=== PATIENT | female | born 1970 | race African-American/Black ===

== ENCOUNTER 2020-05-20 11:30 | Emergency (ER) | payer SELFPAY ==
[~2020-05-20] VITALS: Ht 167.6 cm; Wt 74.1 kg
[2020-05-20 11:30] VITALS: BP 148/101
[2020-05-20] MEDS ORDERED: SUCRALFATE 1 GM TABLET. PO ONE ×2 (11:44→12:00)
[2020-05-20] MEDS ORDERED: LIDO:MAALOX 1:1 20 ML SINGLE DOSE. ONE (11:44)
[2020-05-20] MEDS ORDERED: LIDO:MAALOX 1:1 20 ML SINGLE DOSE. PO ONE (11:45)
--- NOTE | 2020-05-20 11:45 | PHYS DOC ---
Past History Past Surgical History: Gastric Bypass Adult General Chief Complaint Chief Complaint: ABDOMINAL PAIN HPI HPI Patient is a 49-year-old female who presents via POV for abdominal pain. This is an acute on chronic process. She has history of numerous abdominal surgeries such as gastric bypass and has known ulcers. She used to abuse NSAIDs and subsequently was treated in outpatient setting for ulcers. Reports she has not had any NSAIDs but does admit that she used to drink a lot and recently had "a beer to" several days ago. She reports having epigastric pain that is gnawing in nature and worsening since having beer. She attempted to go to work today but abdominal pain was unrelenting prompting her to come to our ER for evaluation Review of Systems Review of Systems Fourteen body systems of review of systems have been reviewed. See HPI for pertinent positives and negative responses, other vázquez all other systems are negative, non-pertinent or non-contributory Allergies Allergies Allergies Coded Allergies Type Severity Reaction Last Updated Verified latex Allergy Unknown 05/20/20 Yes prochlorperazine Allergy Unknown 05/20/20 Yes Physical Exam Physical Exam Constitutional: Well developed, well nourished, no acute distress, non-toxic appearance. HENT: Normocephalic, atraumatic, bilateral external ears normal, oropharynx moist, no oral exudates, nose normal. Eyes: PERRLA, EOMI, conjunctiva normal, no discharge. Neck: Normal range of motion, no tenderness, supple, no stridor. Cardiovascular: Heart rate regular, sinus rhythm, no murmurs rubs or gallops Lungs & Thorax: Bilateral breath sounds clear to auscultation Abdomen: Bowel sounds normal, soft, epigastric tenderness to palpation without guarding or rebound, no masses, no pulsatile masses. Nonsurgical abdomen, no peritoneal signs Skin: Warm, dry, no erythema, no rash. Back: No tenderness, no CVA tenderness. Extremities: No tenderness, no cyanosis, no clubbing, ROM intact, no edema. Neurologic: Alert and oriented X 3, grossly normal motor & sensory function, no focal deficits noted. Psychologic: Tearful affect, judgement normal, mood normal. Current Patient Data Vital Signs Vital Signs Date Time Temp Pulse Resp B/P (MAP) Pulse Ox O2 Delivery O2 Flow Rate FiO2 05/20/20 13:04 16 98 05/20/20 11:30 98.9 76 20 148/101 (117) 97 Room Air Lab Results Laboratory Tests Test 05/20/20 12:20 White Blood Count 4.9 x10^3/uL Red Blood Count 4.65 x10^6/uL Hemoglobin 12.5 g/dL Hematocrit 38.9 % Mean Corpuscular Volume 84 fL Mean Corpuscular Hemoglobin 27 pg Mean Corpuscular Hemoglobin Concent 32 g/dL Red Cell Distribution Width 14.2 % Platelet Count 265 x10^3/uL Neutrophils (%) (Auto) 38 % Lymphocytes (%) (Auto) 48 % Monocytes (%) (Auto) 7 % Eosinophils (%) (Auto) 6 % Basophils (%) (Auto) 1 % Neutrophils # (Auto) 1.9 x10^3uL Lymphocytes # (Auto) 2.3 x10^3/uL Monocytes # (Auto) 0.3 x10^3/uL Eosinophils # (Auto) 0.3 x10^3/uL Basophils # (Auto) 0.1 x10^3/uL Sodium Level 146 mmol/L Potassium Level 3.6 mmol/L Chloride Level 108 mmol/L Carbon Dioxide Level 33 mmol/L Anion Gap 5 Blood Urea Nitrogen 8 mg/dL Creatinine 0.9 mg/dL Estimated GFR (Cockcroft-Gault) 80.2 BUN/Creatinine Ratio 9 Glucose Level 82 mg/dL Calcium Level 8.9 mg/dL Total Bilirubin 0.5 mg/dL Aspartate Amino Transf (AST/SGOT) 63 U/L Alanine Aminotransferase (ALT/SGPT) 71 U/L Alkaline Phosphatase 171 U/L Troponin I Quantitative < 0.017 ng/mL Total Protein 6.9 g/dL Albumin 3.3 g/dL Albumin/Globulin Ratio 0.9 Current Medications Medications (Trade) Dose Ordered Sig/Yesenia Route PRN Reason Start Time Stop Time Status Last Admin Dose Admin Multi-Ingredient Mouthwash/Gargle (Gi Cocktail) 20 ml 1X ONCE PO 05/20/20 11:45 05/20/20 11:55 DC 05/20/20 11:45 Multi-Ingredient Mouthwash/Gargle (Gi Cocktail) 20 ml STK-MED ONCE .ROUTE 05/20/20 11:44 05/20/20 11:44 DC Sucralfate (Carafate) 1 gm STK-MED ONCE PO 05/20/20 11:44 05/20/20 11:44 DC Sucralfate (Carafate) 1 gm 1X ONCE PO 05/20/20 12:00 05/20/20 12:01 DC 05/20/20 11:48 Morphine Sulfate (Morphine 2mg Syringe) 2 mg 1X ONCE IV 05/20/20 12:15 05/20/20 12:16 DC 05/20/20 12:15 Morphine Sulfate (Morphine 2mg Syringe) 2 mg 1X ONCE IV 05/20/20 13:00 05/20/20 13:03 DC 05/20/20 13:04 Pantoprazole Sodium (Protonix Vial) 40 mg 1X ONCE IVP 05/20/20 13:30 05/20/20 13:32 DC EKG EKG EKG reviewed and interpreted by me. Sinus rhythm with a rate of 72 bpm intervals unremarkable. No axis deviation. No ischemia. No STEMI. Radiology/Procedures Radiology/Procedures [] Heart Score C/O Chest Pain: No HEART Score for Chest Pain: HEART Score for Chest Pain Response (Comments) Value History Slighlty/Non-Suspicious 0 ECG Normal 0 Age >45 - < 65 1 Risk Factors 1 or 2 Risk Factors 1 Troponin < Normal Limit 0 Total 2 Risk Factors: Risk Factors: DM, Current or recent (<one month) smoker, HTN, HLP, family history of CAD, obesity. Risk Scores: Risk Factors: DM, Current or recent (<one month) smoker, HTN, HLP, family history of CAD, obesity. Course & Med Decision Making Course & Med Decision Making Hemodynamically stable patient with history consistent with prior episodes of ulcers/gastritis. Physical exam nonconcerning, nonacute abdomen Comprehensive ER work-up obtained and grossly unremarkable Patient responded adequately to GI cocktail, Carafate, PPI administration and 4 mg IV morphine Discussed clinical case with patient. Discussed potential need for further diagnostic work-up in ER setting but joint decision to defer given improvement in symptoms Patient has good access to PCP. I advised her to call and discuss ER visit first thing tomorrow, she will likely need to be seen by her GI physician in outpatient follow-up. She will be sent home with new prescriptions for Carafate and PPI for which she has been out of. Also avoid NSAIDs and alcohol use Strict return precautions discussed with good understanding by patient, all questions and concerns addressed prior to ER departure in improved condition Dragbrandon Disclaimer Dragon Disclaimer This electronic medical record was generated, in whole or in part, using a voice recognition dictation system. Departure Departure: Impression: Primary Impression: Undifferentiated abdominal pain Additional Impression: Gastritis Disposition: 01 DC HOME SELF CARE/HOMELESS Condition: IMPROVED Referrals: PCP,[facility] (PCP) Patient Instructions: Abdominal Pain (Nonspecific), Gastritis, Adult Additional Instructions: You have been evaluated in the Emergency Department today for abdominal pain. Your evaluation was not suggestive of any emergent condition requiring medical intervention at this time. However, some abdominal problems make take more time to appear. Therefore, it is important for you to watch for any new symptoms or worsening of your current condition. Please call your primary care physician first thing tomorrow morning to review ER visit today. As discussed, you would benefit from following up with your GI physician in the outpatient setting Return to the Emergency Department if you experience worsening pain, persistent fevers greater than 100.4, recurrent vomiting, blood in vomit, blood in stool, dark tarry stool, chest pain, difficulty breathing, or any other concerning symptoms. Scripts Sucralfate (CARAFATE) 1 Gm/10 Ml Oral.susp 10 ML PO QID for ABDOMINAL PAIN for 30 Days, #1 L 0 Refills before food Prov: GABY MAO DO 05/20/20 Omeprazole (OMEPRAZOLE) 40 Mg Capsule.dr 1 CAP PO DAILY for ABDOMINAL PAIN for 14 Days, #14 CAP 3 Refills Prov: GABY MAO DO 05/20/20 Problem Qualifiers GABY MAO DO May 20, 2020 11:45
[2020-05-20] MEDS ORDERED: MORPHINE SULFATE 2 MG/ML DISP.SYRIN. IV ONE ×2 (12:15→13:00)
[2020-05-20 12:53] LABS: BASO # 0.1 x10^3/uL (0.0-0.2); BASO % 1 % (0-3); EOS # 0.3 x10^3/uL (0.0-0.7); EOS % 6 % (0-3); HEMATOCRIT 38.9 % (36.0-47.0); HEMOGLOBIN 12.5 g/dL (12.0-15.5); LYMPH # 2.3 x10^3/uL (1.0-4.8); LYMPH % 48 % (24-48); MEAN CORPUSCULAR HEMOGLOBIN 27 pg (25-35); MEAN CORPUSCULAR HGB CONC 32 g/dL (31-37); MEAN CORPUSCULAR VOLUME 84 fL (79-100); MONO # 0.3 x10^3/uL (0.0-1.1); MONO % 7 % (0-9); NEUT # 1.9 x10^3uL (1.8-7.7); NEUT % 38 % (31-73); PLATELET COUNT 265 x10^3/uL (140-400); RED BLOOD COUNT 4.65 x10^6/uL (3.50-5.40); RED CELL DISTRIBUTION WIDTH 14.2 % (11.5-14.5); WHITE BLOOD COUNT 4.9 x10^3/uL (4.0-11.0)
[2020-05-20 13:03] LABS: CALCIUM 8.9 mg/dL (8.5-10.1); CREATININE 0.9 mg/dL (0.6-1.0); GFR 80.2; POTASSIUM 3.6 mmol/L (3.5-5.1)
[2020-05-20 13:09] LABS: ALBUMIN 3.3 g/dL (3.4-5.0); ALBUMIN/GLOBULIN RATIO 0.9 (1.0-1.7); TOTAL BILIRUBIN 0.5 mg/dL (0.2-1.0); TOTAL PROTEIN 6.9 g/dL (6.4-8.2)
[2020-05-20] MEDS ORDERED: OMEP40CA45 PO (13:30)
[2020-05-20] MEDS ORDERED: PANTOPRAZOLE IV 40 MG VIAL. IVP ONE (13:30)
[2020-05-20] MEDS ORDERED: SUCR1ORA5 PO (13:30)
--- NOTE | 2020-05-20 14:23 | EKG ---
[address] [address] Test Date: 2020-05-20 Test Time: 12:03:07 Pat Name: CONNOR HSIEH Department: Room: Gender: F Chief Analytics Officer: RADHA : 1970 Requested By: GABY MAO Order Number: [id number] Reading MD: Measurements Intervals [place] Rate: 72 P: 48 [place]: 194 QRS: 64 QRSD: 84 T: 37 QT: 356 QTc: 391 Interpretive Statements SINUS RHYTHM T ABNORMALITY IN ANTEROSEPTAL LEADS ABNORMAL ECG RI6.02 No previous ECG available for comparison
== END 2020-05-20 13:48 | disposition home or self-care (01) ==
LOC: ER 11:30
DX: K29.70 Gastritis, unspecified, without bleeding (principal); Z91.040 Latex allergy status; Z88.8 Allergy status to other drugs, medicaments and biological substances
CPT/HCPCS: 36415; 80053; 84484; 85025; 93005; 96374; 96375; 96376; 99284; C9113; J2270

== ENCOUNTER 2020-12-06 08:39 | Emergency (ER) | payer SELFPAY ==
[~2020-12-06] VITALS: Ht 167.6 cm; Wt 67.2 kg
[~2020-12-06 08:39] MED LIST: OMEP40CA7 PO; SUCR1ORA5 PO
[2020-12-06 08:40] VITALS: BP 153/92
--- NOTE | 2020-12-06 09:10 | PHYS DOC ---
Past History Past Medical History: GERD Past Surgical History: Gastric Bypass Additional Past Surgical Histo: dillon bypass Alcohol Use: Occasionally General Adult EDM: Chief Complaint: MEDICATION REFILL HPI: HPI: 50 yo female presents with concern for benzo withdrawal. She has been on clonazepam 1 mg every 6 hours for some time, at least 3 pills a day. These were prescribed by a psychiatrist. She just ran out of them 3 days ago and cannot get a refill because she cannot see the psychiatrist anymore. The patient has an appointment tomorrow with a primary provider for medication discussion and refills specifically. The patient is feeling nauseated and has "brain fog". She assumes it is withdrawal from her medications. She wants to get off of the medication but she is afraid of the side effects including possible seizure. No history of seizure or seizure withdrawals. She would like to get off of this medication. She does asking to get through today until her appointment tomorrow. Review of Systems: Review of Systems: Constitutional: Denies fever or chills Eyes: Denies change in visual acuity HENT: Denies nasal congestion or sore throat Respiratory: Denies cough or shortness of breath Cardiovascular: Denies chest pain or edema GI: Denies abdominal pain, nausea, vomiting, bloody stools or diarrhea : Denies dysuria Musculoskeletal: Denies back pain or joint pain Integument: Denies rash Neurologic: Denies headache, focal weakness or sensory changes Endocrine: Denies polyuria or polydipsia Lymphatic: Denies swollen glands Psychiatric: anxiety Allergies: Allergies: Allergies Coded Allergies Type Severity Reaction Last Updated Verified latex Allergy Unknown 05/20/20 Yes prochlorperazine Allergy Unknown 05/20/20 Yes Physical Exam: PE: Constitutional: Well developed, well nourished, no acute distress, non-toxic appearance. [] HENT: Normocephalic, atraumatic, bilateral external ears normal, oropharynx moist, no oral exudates, nose normal. [] Eyes: PERRLA, EOMI, conjunctiva normal, no discharge. [] Neck: Normal range of motion, no tenderness, supple, no stridor. [] Cardiovascular: Heart rate regular rhythm, no murmur [] Lungs & Thorax: Bilateral breath sounds clear to auscultation [] Abdomen: Bowel sounds normal, soft, no tenderness, no masses, no pulsatile m asses. [] Skin: Warm, dry, no erythema, no rash. [] Back: No tenderness, no CVA tenderness. [] Extremities: No tenderness, no cyanosis, no clubbing, ROM intact, no edema. [] Neurologic: Alert and oriented X 3, normal motor function, normal sensory function, no focal deficits noted. [] Psychologic: Affect appropriately concerned, judgement normal, mood anxious. [] EKG: EKG: [] Radiology/Procedures: Radiology/Procedures: [] Heart Score: C/O Chest Pain: N/A Risk Factors: Risk Factors: DM, Current or recent (<one month) smoker, HTN, HLP, family history of CAD, obesity. Risk Scores: Score 0 - 3: 2.5% MACE over next 6 weeks - Discharge Home Score 4 - 6: 20.3% MACE over next 6 weeks - Admit for Clinical Observation Score 7 - 10: 72.7% MACE over next 6 weeks - Early Invasive Strategies Course & Med Decision Making: Course & Med Decision Making Pertinent Labs and Imaging studies reviewed. (See chart for details) I will treat the patient with 1 mg of Ativan to take the edge off of her withdrawal symptoms. She is going to be seen by her provider in about 24 hours to further manage her medications. Patient is agreement with this plan. She is stable for discharge at this time. [] Melva Disclaimer: Melva Disclaimer: This electronic medical record was generated, in whole or in part, using a voice recognition dictation system. Departure Departure: Impression: Primary Impression: Benzodiazepine withdrawal Disposition: HOME / SELF CARE / HOMELESS Condition: STABLE Referrals: PCP,NO (PCP) Patient Instructions: Benzodiazepine Withdrawal OSIEL MUKHERJEE DO Dec 06, 2020 09:10
[2020-12-06] MEDS ORDERED: LORazepam 1 MG TABLET PO ONE (09:15)
== END 2020-12-06 10:30 | disposition home or self-care (01) ==
LOC: ER 08:39
DX: F15.23 Other stimulant dependence with withdrawal (principal); F41.9 Anxiety disorder, unspecified; Z76.0 Encounter for issue of repeat prescription
CPT/HCPCS: 99283